=== PATIENT | male | born 1965 | race Caucasian/White ===

== ENCOUNTER → 2017-03-22 | Outpatient (CLI) | payer BC ==
--- NOTE | 2017-03-22 16:03 | PCVCIMAG ---
APPROVED REPORT Study performed: 03/22/2017 13:56:39 EXAM: Comprehensive 2D, Doppler, and color-flow Echocardiogram Patient Location: Echo lab Status: routine BSA: 2.00 HR: 58 bpmBP: 132/90 mmHg Rhythm: Bradycardia Risk Factors: Cardiac Risk Factors: HTN, Hyperlipidemia Indications Elevated calcium score 100-199, Sleep apnea 2D Dimensions LVEF(%): 45.72 (>50%) IVSd: 11.35 (7-11mm) LVDd: 54.11 mm PWd: 11.12 (7-11mm) LVDs: 41.66 (25-40mm) Left Atrium: 39.68 (27-40mm) Aortic Root: 30.82 mm LV Single Plane 4CH: 60.77 % LV Single Plane 2CH: 50.61 %Cornell's LVEF: 55.69 % Biplane EF: 54.7 % Volumes Left Atrial Volume (Systole) Single Plane 4CH: 55.28 mLSingle Plane 2CH: 72.18 mL LA ESV Index: 32.00 mL/m2 Aortic Valve AoV Peak Paco.: 1.41 m/s AO Peak Gr.: 7.90 mmHgLVOT Max P.25 mmHg LVOT Max V: 0.90 m/s Mitral Valve E/A Ratio: 1.4 MV Decel. Time: 283.26 ms MV E Max Paco.: 0.49 m/s MV A Paco.: 0.34 m/s IVRT: 110.73 ms Pulmonary Valve PV Peak Paco.: 0.91 m/sPV Peak Gr.: 3.29 mmHg Pulmonary Vein P Vein S: 0.38 m/sP Vein A: 0.32 m/s P Vein D: 0.58 m/sP Vein A Dur.: 138.4 msec P Vein S/D Ratio: 0.66 Tricuspid Valve TR Peak Paco.: 2.45 m/s TR Peak Gr.: 24.08 mmHg Left Ventricle The left ventricle is normal size. There is normal LV segmental wall motion. There is normal left ventricular wall thickness. Left ventricular systolic function is normal. The left ventricular ejection fraction is within the normal range. LVEF is 55-60%. The left ventricular diastolic function is normal. Right Ventricle The right ventricle is normal size. The right ventricular systolic function is normal. Atria The left atrium size is normal. The right atrium size is normal. Aortic Valve The aortic valve is normal in structure. No aortic regurgitation is present. There is no aortic valvular stenosis. Mitral Valve The mitral valve is normal in structure. Mild mitral regurgitation. No evidence of mitral valve stenosis. Tricuspid Valve The tricuspid valve is normal in structure. Mild tricuspid regurgitation with a PAP of 31 mmHg. Pulmonic Valve The pulmonary valve is normal in structure. There is no pulmonic valvular regurgitation. Great Vessels The aortic root is normal in size. IVC is normal in size and collapses with >50% inspiration Pericardium There is no pericardial effusion. <Conclusion> Left ventricular systolic function is normal. There is normal LV segmental wall motion. LVEF is 55-60%. Normal diastolic function The aortic valve is normal in structure. No aortic valvular stenosis or insufficiency. The mitral valve is normal in structure. Mild mitral regurgitation. Pulmonary artery pressure of 30mmHg There is no pericardial effusion.
--- NOTE | 2017-03-22 16:07 | PCVCIMAG ---
APPROVED REPORT Patient Location: Echo lab Room #: Treadmill stress test Stress Nurse: Kait Jeffery RN Indications- Calcium score 100-199, HTN, HLP, Fam hx CAD The patient exercised according to the Juan Daniel protocol for 13:01 mins; achieving a work level of 17.2 METS. The resting heart rate of 58 bpm victor hugo to a maximal heart rate of 162 bpm. This value represents 96% of the maximal, age-predicted heart rate. The resting blood pressure of 132/90 mmHg, victor hugo to a maximum of 184/80 mmHg. The exercise test was stopped due to dyspnea and fatigue. Resting ECG: Normal sinus, normal tracing Stress ECG: No diagnostic ischemic electrocardiographic changes, no dysrhythmias Conclusion 1. Maximal treadmill exercise study negative for exercise-induced ischemia. 2. No subjective signs of ischemia such as chest pain or anginal-like symptoms. 3. The study was associated with good exercise capacity (17.2 METS)
== END | disposition home or self-care (01) ==
LOC: PCVCIMAG 13:55
PROVIDERS: ATTEND Internal Medicine
DX: I08.1 Rheumatic disorders of both mitral and tricuspid valves (principal); I10 Essential (primary) hypertension; E78.5 Hyperlipidemia, unspecified; R00.1 Bradycardia, unspecified; Z82.49 Family history of ischemic heart disease and other diseases of the circulatory system
CPT/HCPCS: 80061; 93005; 93017; 93306